=== PATIENT | male | born 1970 | race Caucasian/White ===

== ENCOUNTER → 2021-02-10 | Outpatient (CLI) | payer OTHER | LOC: M.RAD 12:09 | PROVIDERS: ATTEND Chiropractor | DX: R06.02 Shortness of breath (principal); R05 Cough ==

== ENCOUNTER → 2021-06-15 | Outpatient (CLI) | payer OTHER ==
--- NOTE | 2021-07-05 19:29 | PF ---
[address] [address] PULMONARY FUNCTION REPORT Name: JORDANMARGE WHITFIELD Room: [facility]#: [id number] Admission: 06/15/21 [facility]end [facility] Dis[facility]: Date of : 70 Report #: [id number] THIS REPORT FOR: cc: FAM - No family physician/PCP FAM - No family physician/PCP Yang Tobin MD ~ DATE OF VISIT: 06/15/2021 PULMONARY FUNCTION TEST The FEV1/FVC ratio is normal at 71% with an FVC mildly decreased to 78%. The FEV1 is also decreased to 72% and the FEF 25-75 is decreased to 57%. After the administration of a bronchodilator, there is no significant increase in any of these values. The patient's post-bronchodilator FEV1 is noted to be 3.02 liters. Only a spirometry was performed. IMPRESSION: There is a restrictive pattern on spirometry. This could be secondary to underlying true restriction as well as obstruction, poor effort or neuromuscular weakness. Clinical correlation is advised. If further evaluation is clinically indicated, then full pulmonary function test with lung volumes can be obtained. <ELECTRONICALLY SIGNED> By: Yang Tobin MD 07/05/21 1929 [id number] Viral Tobin MD /nt
== END ==
LOC: M.PUL 05-25 10:00
PROVIDERS: ATTEND Chiropractor
DX: R06.02 Shortness of breath (principal); M13.80 Other specified arthritis, unspecified site